=== PATIENT | male | born 1990 | race Caucasian/White ===

== ENCOUNTER 2016-07-21 10:09 | Emergency (ER) | payer OTHER ==
[~2016-07-21] VITALS: Ht 177.8 cm; Wt 79.6 kg
[2016-07-21 10:13] VITALS: TEMP 36.4; Ht 177.8 cm; Wt 79.6 kg
[2016-07-21] MEDS ORDERED: SODIUM CHLORIDE 0.9% 1000ML 1,000 ML IV STA (10:31)
[2016-07-21] MEDS ORDERED: PRT/20 PO (10:37)
[2016-07-21] MEDS ORDERED: CYCL5TAB PO (10:37)
[2016-07-21 11:12] LABS: BASO % 0.5 %; BASO ABS # 0.03 K/uL (0-0.2); COMPLETE YES; EOS % 2.7 %; HEMATOCRIT 40.4 % (42-52); IG% 0.2 %; LYMPH % 31.7 %; LYMPH ABS # 2.01 K/uL (1.2-3.4); MEAN CELL VOLUME 86.5 fL (80-100); MEAN CORPUSCULAR HEMOGLOBIN 30.8 pg (25-34); MEAN CORPUSCULAR HGB CONC 35.6 g/dl (32-36); MEAN PLATELET VOLUME 10.4 fL (7.4-10.4); MONO % 12.9 %; PLATELET COUNT 237 K/uL (130-400); RED BLOOD COUNT 4.67 M/uL (4.7-6.1); WHITE BLOOD COUNT 6.34 K/uL (4.8-10.8)
[2016-07-21 11:31] LABS: BUN/CREATININE RATIO 14.2 (10-20); CALCIUM 8.4 mg/dl (8.5-10.1); CREATININE 1.2 mg/dl (0.60-1.40); POTASSIUM 3.9 mmol/L (3.5-5.1)
--- NOTE | 2016-07-21 11:38 | EMERGENCY ROOM VISIT NOTE ---
History First contact with patient: 10:22 Chief Complaint: OTHER COMPLAINT Stated Complaint: FIT FOR DUTY TESTING History of Present Illness The patient is a 26 year old male who presents to the Emergency Room was sent here by the staff on third floor for evaluation. 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 The staff noticed that he looked like he was confused and shuffling papers and was dozing off at the desk. He denies being under the influence of any drugs or alcohol. He does admit that he took his Protonix and a Flexeril this morning. He is on the Flexeril for chronic back pain. He states normally this does not make him drowsy. He does admit that he did not sleep at all last night and the night before he only slept one hour. Both his and his 2 children have been sick with the GI bug with vomiting and diarrhea. He has also been dealing with his mother who has been calling him dealing with relationship issues. The patient states that he just feels "exhausted" the patient denies any headache, dizziness or visual changes. Review of Systems 10 system review was performed and was negative unless stated otherwise history of present illness. Past Medical/Surgical History GERD, chronic back pain Social History Smoking Status: Former Smoker Alcohol Use: occasionally Drug Use: none Marital Status: Housing Status: lives with family Occupation Status: employed Current/Historical Medications Scheduled Pantoprazole (Protonix), Unknown Dose PO DAILY Scheduled PRN Cyclobenzaprine Hcl (Flexeril), Unknown Dose PO BID PRN for Pain Allergies Coded Allergies: No Known Allergies (Verified , 07/21/16) Physical Exam Vital Signs Date Time Temp Pulse Resp B/P Pulse Ox O2 Delivery O2 Flow Rate FiO2 07/21/16 10:13 36.4 75 18 159/78 99 Room Air Physical Exam GENERAL: 28-year-old white male appears in no acute distress. MENTAL Status: Alert and oriented 3 EYES: PERRLA. EOMs intact. EARS: Canals clear. TMs without fluid level noted. NECK: Supple, no lymphadenopathy noted. No carotid bruits noted. LUNGS: Clear auscultation without wheezes rales or rhonchi. CARDIAC: Regular rate and rhythm without murmur. Pulses is full and equal throughout. ABDOMEN: Positive bowel sounds all 4 quadrants. Soft, nontender to palpation without organomegaly or masses. NEURO:Cranial nerves two through 12 intact. Cerebellar function intact with [id number]. Fine motor intact with alternating finger motions. Medical Decision & Procedures Laboratory Results 07/21/16 10:55 Red Blood Count 4.67, Mean Corpuscular Volume 86.5, Mean Corpuscular Hemoglobin 30.8, Mean Corpuscular Hemoglobin Concent 35.6, Mean Platelet Volume 10.4, Neutrophils (%) (Auto) 52.0, Lymphocytes (%) (Auto) 31.7, Monocytes (%) (Auto) 12.9, Eosinophils (%) (Auto) 2.7, Basophils (%) (Auto) 0.5, Neutrophils # (Auto ) 3.30, Lymphocytes # (Auto) 2.01, Monocytes # (Auto) 0.82, Eosinophils # (Auto ) 0.17, Basophils # (Auto) 0.03 07/21/16 10:55 Test 07/21/16 10:55 White Blood Count 6.34 K/uL (4.8-10.8) Red Blood Count 4.67 M/uL (4.7-6.1) Hemoglobin 14.4 g/dL (14.0-18.0) Hematocrit 40.4 % (42-52) Mean Corpuscular Volume 86.5 fL (80-100) Mean Corpuscular Hemoglobin 30.8 pg (25-34) Mean Corpuscular Hemoglobin Concent 35.6 g/dl (32-36) Platelet Count 237 K/uL (130-400) Mean Platelet Volume 10.4 fL (7.4-10.4) Neutrophils (%) (Auto) 52.0 % Lymphocytes (%) (Auto) 31.7 % Monocytes (%) (Auto) 12.9 % Eosinophils (%) (Auto) 2.7 % Basophils (%) (Auto) 0.5 % Neutrophils # (Auto) 3.30 K/uL (1.4-6.5) Lymphocytes # (Auto) 2.01 K/uL (1.2-3.4) Monocytes # (Auto) 0.82 K/uL (0.11-0.59) Eosinophils # (Auto) 0.17 K/uL (0-0.5) Basophils # (Auto) 0.03 K/uL (0-0.2) RDW Standard Deviation 40.5 fL (36.4-46.3) RDW Coefficient of Variation 12.7 % (11.5-14.5) Immature Granulocyte % (Auto) 0.2 % Immature Granulocyte # (Auto) 0.01 K/uL (0.00-0.02) Anion Gap 6.0 mmol/L (3-11) Est Creatinine Clear Calc Drug Dose 95.5 ml/min Estimated GFR () 95.5 Estimated GFR (Non- 82.4 BUN/Creatinine Ratio 14.2 (10-20) Calcium Level 8.4 mg/dl (8.5-10.1) Medications Administered Medications (Trade) Dose Ordered Sig/Nestor Route Start Time Stop Time Status Last Admin Dose Admin Sodium Chloride (Nss 1000ml) 1,000 ml @ 999 mls/hr Q1H1M STAT IV 07/21/16 10:31 07/21/16 11:32 DC 07/21/16 10:55 999 MLS/HR ED Course The patient was evaluated. IV access was obtained. The patient was given 1 L normal saline wide-open. CBC and differential renal profile was ordered. [employer] ordered a employee drug screen. CBC and differential renal profile were reviewed and were unremarkable. Drug screen is still pending per [employer]. [employer] [facility] stated that the patient could be discharged and that he will be off work until they reevaluate the patient after getting the drug screen results back. The patient was discharged home in stable condition via taxi Medical Decision I felt that this patient was just exhausted since he has not slept for 2 nights. [employer] had already initiated testing for drug screen. The patient was neurologically intact therefore did not feel that that any additional imaging was required. Impression Primary Impression: Exhaustion Departure Information Dispostion Home / Self-Care Condition GOOD Referrals No Doctor, Assigned (PCP) Forms HOME CARE DOCUMENTATION FORM, IMPORTANT VISIT INFORMATION, WORK / SCHOOL INSTRUCTIONS Patient Instructions [email or web address] Additional Instructions Go home and sleep. Rest as much as possible. Per [facility] he will need to be reevaluated by [facility] before you can return to work.
[2016-07-21 12:30] LABS: BENZODIAZEPINE, URINE NEG (NEG); COCAINE,URINE NEG (NEG); PHENCYCLIDINE, URINE NEG (NEG)
[2016-07-21 12:36] VITALS: BP 136/76; PULSE 65; O2SAT 100
== END 2016-07-21 12:39 | disposition home or self-care (01) ==
LOC: EDSEX 10:09 → EDBD 10:09 → C.EDB 10:10
DX: R53.83 Other fatigue (principal); K21.9 Gastro-esophageal reflux disease without esophagitis; Z87.891 Personal history of nicotine dependence; Z79.899 Other long term (current) drug therapy

== ENCOUNTER → 2016-12-08 | Outpatient (CLI) | payer OTHER ==
[~2016-12-08] MED LIST: CYCL5TAB PO; PRT/20 PO
--- NOTE | 2016-12-08 15:34 | DIAGNOSTIC IMAGING REPORT ---
LUMBAR SPINE W/O CONTRAST HISTORY: Pain LUMBAR RADICULOPATHY TECHNIQUE: Multiplanar multisequence MRI of the lumbar spine was performed without the use of contrast. COMPARISON: None. FINDINGS: For the purpose of the report the L5-S1 disc space will be located on axial image 23 of 25. Signal characteristics of the vertebral bodies are unremarkable. There is a benign Schmorl's node inferior endplate of L1. There is moderate degenerative intervertebral disc change from L3 through L5. There is a small Schmorl's nodes superior endplate L3.. Minimal retrolisthesis of L5 on S1 L1-L2: No significant central canal or neural foraminal narrowing. L2-L3: Minimal based disc bulge. No significant impact upon the anterior thecal sac. L3-L4: Minimal disc bulge. L4-L5: Minimal disc bulge L5-S1: Mild central disc herniation. Minimal impact upon the anterior thecal sac. Significant narrowing left and to lesser extent right neuroforamina. IMPRESSION: 1. Minimal degenerative disc change with several benign endplate Schmorl's nodes. 2. Mild/ Moderate central disc herniation L5-S1 , with narrowing of the neuroforamina bilaterally. 3. No pathologic abnormality of the vertebral bodies. 4. Minimal retrolisthesis L5 on S1 The above report was generated using voice recognition software. It may contain grammatical, syntax or spelling errors. Electronically signed by: Adeel Sparks M.D. 12/08/2016 3:32 PM Dictated Date/Time: 12/08/2016 3:27 PM
== END | disposition home or self-care (01) ==
LOC: C.MRI 14:33
PROVIDERS: ATTEND Physician Assistant Medical
DX: M54.16 Radiculopathy, lumbar region (principal); M51.46 Schmorl's nodes, lumbar region

== ENCOUNTER → 2017-12-02 | Outpatient (CLI) | payer OTHER ==
--- NOTE | 2017-12-02 15:56 | DIAGNOSTIC IMAGING REPORT ---
R KNEE 1 OR 2 VIEWS ROUTINE CLINICAL HISTORY: RIGTH KNEE PAIN pain COMPARISON: None. DISCUSSION: The bones and joint spaces appear intact. There is no evidence of fracture, dislocation or bony disease. There is no evidence for soft tissue swelling. IMPRESSION: Negative study. The above report was generated using voice recognition software. It may contain grammatical, syntax or spelling errors. Electronically signed by: Adeel Sparks M.D. 12/02/2017 3:54 PM Dictated Date/Time: 12/02/2017 3:54 PM
== END | disposition home or self-care (01) ==
LOC: C.RAD 15:27
PROVIDERS: ATTEND General Practice
DX: M25.561 Pain in right knee (principal)